=== PATIENT | female | born 1945 ===

== ENCOUNTER 2023-08-08 09:55 | Outpatient (CLI) | payer OTHER | END 2023-08-08 10:00 | disposition home or self-care (01) | LOC: SONOGRAMA 09:55 | PROVIDERS: ATTEND Pathology Anatomic Pathology | DX: D44.0 Neoplasm of uncertain behavior of thyroid gland (principal); E03.9 Hypothyroidism, unspecified ==

== ENCOUNTER 2024-07-04 07:51 | Outpatient (CLI) | payer OTHER | END 2024-07-04 07:58 | disposition home or self-care (01) | LOC: RAD 07:51 | PROVIDERS: ATTEND Orthopaedic Surgery | DX: S62.314A Displaced fracture of base of fourth metacarpal bone, right hand, initial encounter for closed fracture (principal); X58.XXXA Exposure to other specified factors, initial encounter; Y93.9 Activity, unspecified; Y92.9 Unspecified place or not applicable; Y99.9 Unspecified external cause status ==

== ENCOUNTER 2024-07-09 09:20 | Outpatient (CLI) | payer OTHER | END 2024-07-09 09:22 | disposition home or self-care (01) | LOC: RAD 09:20 | PROVIDERS: ATTEND Orthopaedic Surgery | DX: S62.314A Displaced fracture of base of fourth metacarpal bone, right hand, initial encounter for closed fracture (principal) ==

== ENCOUNTER 2024-07-18 11:41 | Outpatient (CLI) | payer OTHER | END 2024-07-18 11:42 | disposition home or self-care (01) | LOC: RAD 11:41 | PROVIDERS: ATTEND Orthopaedic Surgery | DX: S62.314D Displaced fracture of base of fourth metacarpal bone, right hand, subsequent encounter for fracture with routine healing (principal); X58.XXXD Exposure to other specified factors, subsequent encounter ==

== ENCOUNTER 2024-09-24 08:16 | Outpatient (CLI) | payer OTHER | END 2024-09-24 08:17 | disposition home or self-care (01) | LOC: SONOGRAMA 08:16 | PROVIDERS: ATTEND Pathology Anatomic Pathology | DX: C73 Malignant neoplasm of thyroid gland (principal); D34 Benign neoplasm of thyroid gland; E07.89 Other specified disorders of thyroid; E04.1 Nontoxic single thyroid nodule ==